=== PATIENT | male | born 1990 | race Hispanic/Latino ===

== ENCOUNTER → 2024-01-23 | Day surgery (SDC) | payer OTHER ==
[2024-01-19 15:15] LABS: ANION GAP 13.9 mmol/L (8-16); CREATININE, SERUM 0.81 mg/dL (0.72-1.25); POTASSIUM 3.9 mmol/L (3.5-5.1)
[~2024-01-23] MED LIST: ACETAMINOPHEN 1000 MG/100 ML IV ONE; DEXAMETHASONE SOD PHOS INJ 4 MG/ML SDV ONE; FAMOTIDINE20 MG PO; FENTANYL CITRATE/PF 100MCG/2 ML INJ ONE; LIDOCAINE HCL 2% LOCAL INJ 5 ML SDV VIAL INJ ONE; LOSARTAN-HCTZ1 EACH PO; MIDAZOLAM HCL 2 MG/2 ML VIAL ONE; OMEPRAZOLE40 MG PO; ONDANSETRON HCL INJ 2MG/ML 2ML 2 MG/ML VIAL ONE; PROPOFOL IV EMULSION 10 MG/ML 20 ML VIAL ONE; VITAMIN D PO
[2024-01-23] MEDS: LACTATED RINGER'S 1,000 ML ONE (06:56)
[2024-01-23] MEDS: HYDROCODONE/APAP 5MG-325MG TAB ONE (09:55)
[2024-01-23 10:45] VITALS: BP 144/81; PULSE 78; RESP 17; O2SAT 99
== END | disposition home or self-care (01) ==
LOC: OR 05:50
PROVIDERS: ATTEND Specialist
DX: S83.271A Complex tear of lateral meniscus, current injury, right knee, initial encounter (principal); G47.33 Obstructive sleep apnea (adult) (pediatric); I10 Essential (primary) hypertension; E66.01 Morbid (severe) obesity due to excess calories; K21.9 Gastro-esophageal reflux disease without esophagitis; K76.0 Fatty (change of) liver, not elsewhere classified; W22.8XXA Striking against or struck by other objects, initial encounter; Y93.66 Activity, soccer; Y99.8 Other external cause status; Z71.82 Exercise counseling; Z71.3 Dietary counseling and surveillance; Z01.810 Encounter for preprocedural cardiovascular examination; Z01.812 Encounter for preprocedural laboratory examination; Z79.899 Other long term (current) drug therapy; Z68.37 Body mass index [BMI] 37.0-37.9, adult
CPT/HCPCS: 29881; 36415; 80048; 93005; J0690; J7121; J1100; J2001; J2250; J2405